=== PATIENT | male | born 1955 | race Caucasian/White ===

== ENCOUNTER → 2017-01-28 | Day surgery (SDC) | payer BC ==
[~2017-01-28] MED LIST: ATOR10TA PO; HYDROmorphone 2 MG/ML VIAL IV PRN; IV RINGERS,LACTATED 1000ML 1,000 ML IV SCH; LIDOCAINE 1% 1 ML SYRINGE. ID PRN; LIDOCAINE 2% PF Vial for OR 5 ML VIAL. ONE; MORPHINE SULFATE 2 MG/ML DISP.SYRIN. IV PRN; ONDANSETRON PF 4 MG/2 ML VIAL. IV PRN; PROCHLORPERAZINE 10 MG/2 ML VIAL. IV PRN; PROPOFOL 20 ML IV ONE; TRAM50TA PO; ZOLP6.252 PO; fentaNYL PF VIAL 100 MCG/2 ML VIAL IV PRN
[2017-01-28 13:45] VITALS: BP 115/59
--- NOTE | 2017-01-29 12:07 | HP ---
ADMIT DATE: 01/28/2017 REFERRING PHYSICIAN: Dr. Terrell. HISTORY OF PRESENT ILLNESS: A 61-year-old male whose past medical history is significant for constipation, hyperlipidemia as well as partial small-bowel obstruction, and chronic diverticulosis and has a family history of colon polyps is seen with persistent abdominal pain associated with some anorexia, nausea and vomiting, but no weight loss. Subsequent CT scan was unrevealing for additional pathology with continuous symptoms, he requests additional evaluation. PAST MEDICAL HISTORY: Hyperlipidemia and constipation. ALLERGIES: RISPERDAL. MEDICATIONS: Lipitor, tramadol, and Ambien. SOCIAL HISTORY: He is not a smoker, ____ not drink. FAMILY HISTORY: Otherwise noncontributory. Has colon polyps in multiple family members including his father. PAST SURGICAL HISTORY: Status post appendectomy, cholecystectomy, colon resection, tonsillectomy, and hernia repair. REVIEW OF SYSTEMS: Per records. PHYSICAL EXAMINATION: GENERAL: Reveals a well-nourished, well-developed male. VITAL SIGNS: Temperature is 98.2, pulse 84, respiratory rate 20, and blood pressure is ____. HEENT: Normocephalic and atraumatic head. Pupils and extraocular movements not tested. Sclerae anicteric. NECK: Supple. LUNGS: Clear to auscultation. CARDIOVASCULAR: Reveals S1, S2 without S3, S4 or appreciable murmur. ABDOMEN: Reveals a soft abdomen, normal bowel sounds, without appreciable hepatosplenomegaly with diffuse tenderness. EXTREMITIES: Reveals no cyanosis, clubbing or edema. IMPRESSION: Abdominal pain. Etiology is undetermined, peptic ulcer disease, GERD, ____, differential includes colon polyps, colon cancer, gastric cancer and recurrent partial small-bowel obstruction; therefore, recommend upper endoscopy and colonoscopy to further assess. Risks and benefits have been previously discussed with the patient who is willing to proceed. YAYA MANN MD DR: [email or web address] JOB#: [id number] / [id number]
== END | disposition home or self-care (01) ==
LOC: ENDOS 11:48
PROVIDERS: ATTEND Internal Medicine Gastroenterology
DX: Z12.11 Encounter for screening for malignant neoplasm of colon (principal); K64.0 First degree hemorrhoids; K29.50 Unspecified chronic gastritis without bleeding; E78.00 Pure hypercholesterolemia, unspecified; D64.9 Anemia, unspecified; I10 Essential (primary) hypertension; Z90.49 Acquired absence of other specified parts of digestive tract; Z88.6 Allergy status to analgesic agent
CPT/HCPCS: 43235; 45378; J2704